=== PATIENT | female | born 1980 | race Caucasian/White ===

== ENCOUNTER 2016-09-20 09:46 | Emergency (ER) | payer MEDICAID ==
[~2016-09-20] VITALS: Ht 160 cm; Wt 100.0 kg
[2016-09-20 10:11] VITALS: BP 157/97
== END 2016-09-20 11:31 | disposition home or self-care (01) ==
LOC: ER 11:01
DX: R00.2 Palpitations (principal); I10 Essential (primary) hypertension; Z98.890 Other specified postprocedural states
CPT/HCPCS: 93005; 99283; Z7610